=== PATIENT | female | born 1990 | race Caucasian/White ===

== ENCOUNTER 2022-09-22 16:08 | Emergency (ER) | payer OTHER ==
[2022-09-22 17:21] LABS: BASOPHILS PERCENT AUTO 0.2 % (0.0-1.5); EOSINOPHILS PERCENT AUTO 0.8 % (0.0-7.0); HEMATOCRIT 39.3 % (36.0-46.0); HEMOGLOBIN 13.6 g/dL (12.0-16.0); LYMPHOCYTES ABSOLUTE AUTO 1.6 K/uL (0.6-2.4); LYMPHOCYTES PERCENT AUTO 29.9 % (16.0-40.0); MEAN CORPUSCULAR HEMOGLOBIN 32.2 pg (27.0-32.0); MEAN CORPUSCULAR HGB CONC 34.6 g/dL (31.0-37.0); MEAN CORPUSCULAR VOLUME 93.1 fL (80.0-98.0); MONOCYTES ABSOLUTE AUTO 0.5 K/uL (0.0-0.8); MONOCYTES PERCENT AUTO 9.6 % (0.0-15.0); NEUTROPHILS ABSOLUTE AUTO 3.1 K/uL (1.4-5.7); NEUTROPHILS PERCENT AUTO 59.5 % (48.0-80.0); NRBC ABSOLUTE 0 K/uL; PLATELET COUNT,PLT 279 K/uL (150-400); RED BLOOD CELL COUNT 4.22 M/uL (4.30-5.90); WHITE BLOOD CELL COUNT,WBC 5.22 K/uL (4.0-11.0)
[2022-09-22 17:34] LABS: INR 0.94 (0.86-1.11)
[2022-09-22 17:56] LABS: A/G RATIO 1.1 (0.9-1.6); ALBUMIN 4.1 g/dL (3.4-5.0); BILIRUBIN TOTAL 0.3 mg/dL (0.2-1.0); CALCIUM 8.8 mg/dL (8.5-10.1); CREATININE 0.8 mg/dL (0.6-1.0); EST CRCL DRUG DOSING (CG) 76.57 mL/min; PROTEIN TOTAL,TP 7.9 g/dL (6.4-8.2)
== END 2022-09-22 17:32 | disposition left against medical advice (07) ==
LOC: MW.ED 16:08
DX: F10.10 Alcohol abuse, uncomplicated (principal)
CPT/HCPCS: 36415; 80053; 83690; 84703; 85025; 85610; 93010; 99283

== ENCOUNTER 2022-09-26 10:40 | Emergency (ER) | payer OTHER ==
[2022-09-26] MEDS ORDERED: LORazepam 2 MG/ML SDV IVPUSH ONE ×2 (11:07→12:45)
[2022-09-26] MEDS ORDERED: LORazepam 0.5 MG Tab PO ONE (11:09)
[2022-09-26 11:24] LABS: BASOPHILS PERCENT AUTO 0.1 % (0.0-1.5); HEMOGLOBIN 13.3 g/dL (12.0-16.0); LYMPHOCYTES PERCENT AUTO 14.7 % (16.0-40.0); MEAN CORPUSCULAR HEMOGLOBIN 32.4 pg (27.0-32.0); MEAN CORPUSCULAR VOLUME 92.5 fL (80.0-98.0); MONOCYTES ABSOLUTE AUTO 0.4 K/uL (0.0-0.8); MONOCYTES PERCENT AUTO 5.9 % (0.0-15.0); NEUTROPHILS ABSOLUTE AUTO 5.6 K/uL (1.4-5.7); NEUTROPHILS PERCENT AUTO 79.3 % (48.0-80.0); NRBC ABSOLUTE 0 K/uL; PLATELET COUNT,PLT 225 K/uL (150-400); RED BLOOD CELL COUNT 4.11 M/uL (4.30-5.90); WHITE BLOOD CELL COUNT,WBC 7.09 K/uL (4.0-11.0)
[2022-09-26 11:35] LABS: INR 1.03 (0.86-1.11)
[2022-09-26 12:02] LABS: A/G RATIO 1.2 (0.9-1.6); ALBUMIN 4.3 g/dL (3.4-5.0); BILIRUBIN TOTAL 0.5 mg/dL (0.2-1.0); CALCIUM 9.7 mg/dL (8.5-10.1); CARBON DIOXIDE,CO2 20.2 mmol/L (21.0-32.0); CREATININE 0.8 mg/dL (0.6-1.0); EST CRCL DRUG DOSING (CG) 73.05 mL/min; MAGNESIUM 1.6 mg/dL (1.8-2.4); POTASSIUM,K 2.9 mmol/L (3.5-5.1); PROTEIN TOTAL,TP 7.9 g/dL (6.4-8.2)
[2022-09-26 12:08] LABS: LACTIC ACID 6.3 mmol/L (0.4-2.0)
[2022-09-26] MEDS ORDERED: Potassium Chloride 10 MEQ in Premix Bag 1 BAG IV ONE (12:43)
[2022-09-26] MEDS ORDERED: Magnesium Sulfate/Water 2 GM in Premix Bag 1 BAG IV ONE (12:43)
[2022-09-26] MEDS ORDERED: Lactated Ringers 1,000 ML IV ONE (12:43)
[2022-09-26] MEDS ORDERED: Potassium Chloride 20 MEQ Tab.ER PO ONE (12:44)
[2022-09-26 17:02] LABS: A/G RATIO 1.1 (0.9-1.6); ALBUMIN 3.9 g/dL (3.4-5.0); BILIRUBIN TOTAL 0.8 mg/dL (0.2-1.0); CARBON DIOXIDE,CO2 25.5 mmol/L (21.0-32.0); CREATININE 0.7 mg/dL (0.6-1.0); EST CRCL DRUG DOSING (CG) 83.48 mL/min; PROTEIN TOTAL,TP 7.3 g/dL (6.4-8.2)
== END 2022-09-26 17:01 | disposition home or self-care (01) ==
LOC: MW.ED 10:40
DX: F10.139 Alcohol abuse with withdrawal, unspecified (principal); Y90.6 Blood alcohol level of 120-199 mg/100 ml
CPT/HCPCS: 36415; 80053; 80307; 83605; 83690; 83735; 84703; 85025; 85610; 93005; 96361; 96365; 96366; 96368; 96375; 99283; A9270; J2060; J3475; J3480; J7050; J7120

== ENCOUNTER 2022-11-19 11:12 | Emergency (ER) | payer OTHER ==
[2022-11-19] MEDS ORDERED: Acetaminophen 325 MG Tab PO ONE (12:22)
== END 2022-11-19 14:20 | disposition left against medical advice (07) ==
LOC: MW.ED 11:12
DX: S60.512A Abrasion of left hand, initial encounter (principal); S80.02XA Contusion of left knee, initial encounter; S09.90XA Unspecified injury of head, initial encounter; M25.522 Pain in left elbow; Y09 Assault by unspecified means
CPT/HCPCS: 70450; 72125; 73562; 81025; 99284; A9270; 99283

== ENCOUNTER 2023-05-10 12:04 | Emergency (ER) | payer SELFPAY ==
[2023-05-10] MEDS ORDERED: Sodium Chloride 0.9% 1,000 ML IV ONE (12:06)
[2023-05-10] MEDS ORDERED: Sodium Chloride 0.9% 2.5 ML Syringe FLUSH PRN (12:06)
[2023-05-10] MEDS ORDERED: Sodium Chloride 0.9% 10 ML Syringe FLUSH PRN (12:06)
[2023-05-10 12:15] LABS: BASOPHILS ABSOLUTE AUTO 0.02 K/uL (0.00-0.20); BASOPHILS PERCENT AUTO 0.4 % (0.0-1.0); EOSINOPHILS ABSOLUTE AUTO 0.01 K/uL (0.00-0.45); EOSINOPHILS PERCENT AUTO 0.2 % (0.0-6.0); HEMATOCRIT 39.2 % (37.0-47.0); HEMOGLOBIN 13.5 g/dL (12.0-16.0); IMMATURE GRAN ABSOLUTE AUTO 0.01 K/uL (0.00-0.05); IMMATURE GRAN PERCENT AUTO 0.2 % (0.0-0.4); LYMPHOCYTES ABSOLUTE AUTO 2.59 K/uL (1.00-4.80); LYMPHOCYTES PERCENT AUTO 48.6 % (24.0-44.0); MEAN CORPUSCULAR HEMOGLOBIN 32.1 pg (28.0-32.0); MEAN CORPUSCULAR HGB CONC 34.4 g/dL (32.0-36.0); MEAN CORPUSCULAR VOLUME 93.3 fL (83.0-99.0); MEAN PLATELET VOLUME 8.9 fL (9.4-12.3); MONOCYTES ABSOLUTE AUTO 0.41 K/uL (0.00-0.80); MONOCYTES PERCENT AUTO 7.7 % (0.0-8.0); NEUTROPHILS ABSOLUTE AUTO 2.29 K/uL (1.80-7.70); NEUTROPHILS PERCENT AUTO 42.9 % (41.0-71.0); PLATELET COUNT,PLT 331 K/uL (150-400); WHITE BLOOD CELL COUNT,WBC 5.33 K/uL (3.9-11.3)
[2023-05-10 12:55] LABS: A/G RATIO 1.3 (0.9-1.6); ALBUMIN 4.2 g/dL (3.4-5.0); BILIRUBIN TOTAL 0.4 mg/dL (0.2-1.0); CALCIUM 8.5 mg/dL (8.5-10.1); CARBON DIOXIDE,CO2 24.2 mmol/L (21.0-32.0); CREATININE 0.9 mg/dL (0.6-1.0); EST CRCL DRUG DOSING (CG) 68.2 mL/min; POTASSIUM,K 3.6 mmol/L (3.5-5.1); PROTEIN TOTAL,TP 7.5 g/dL (6.4-8.2); TSH ULTRASENSITIVE 1.27 uIU/mL (0.36-3.74)
[2023-05-10 13:12] LABS: APPEARANCE,URINE CLEAR; BILIRUBIN,URINE NEGATIVE (NEGATIVE); COLOR,URINE YELLOW; GLUCOSE,URINE NEGATIVE (NEGATIVE); KETONES,URINE TRACE mg/dL (NEGATIVE); LEUKOCYTE ESTERASE,URINE NEGATIVE (NEGATIVE); NITRITE,URINE NEGATIVE (NEGATIVE); OCCULT BLOOD,URINE NEGATIVE (NEGATIVE); PROTEIN,URINE NEGATIVE (NEGATIVE); UROBILINOGEN,URINE 0.2 EU/dL (<2.0)
[2023-05-10 13:22] LABS: AMPHETAMINES SCREEN, URINE NEGATIVE (CUTOFF=500); BARBITURATE SCREEN,URINE NEGATIVE (CUTOFF=200); BENZODIAZEPINES SCREEN,URINE NEGATIVE (CUTOFF=150); BUPRENORPHINE SCREEN,URINE NEGATIVE (CUTOFF=10); METHADONE SCREEN, URINE NEGATIVE (CUTOFF=200); METHAMPHETAMINES SCREEN, URINE NEGATIVE (CUTOFF=500); OXYCODONE SCREEN,URINE NEGATIVE (CUT0FF=100); PCP SCREEN,URINE NEGATIVE (CUTOFF=25); THC SCREEN,URINE 20 NG/ML NEGATIVE (CUTOFF=50)
== END 2023-05-10 13:24 | disposition left against medical advice (07) ==
LOC: MW.ED 12:04
DX: F10.10 Alcohol abuse, uncomplicated (principal); Z72.89 Other problems related to lifestyle
CPT/HCPCS: 36415; 71045; 80053; 80305; 80307; 81003; 81025; 84443; 84484; 85025; 93005; 96360; 99285; J3490; J7030

== ENCOUNTER 2023-05-17 10:07 | Emergency (ER) | payer SELFPAY | END 2023-05-17 11:33 | LOC: MW.ED 10:07 | DX: Z02.89 Encounter for other administrative examinations (principal); F10.920 Alcohol use, unspecified with intoxication, uncomplicated | CPT/HCPCS: 99284 ==

== ENCOUNTER 2024-10-30 05:11 | Inpatient (IN) | payer BC ==
[2024-10-30] MEDS ORDERED: Sodium Chloride 0.9% 10 ML Syringe FLUSH PRN ×2 (05:20→10:56)
[2024-10-30] MEDS ORDERED: Sodium Chloride 0.9% 20 ML SDV IV PRN (05:20)
[2024-10-30] MEDS ORDERED: Sodium Chloride 0.9% 2.5 ML Syringe FLUSH PRN ×2 (05:20→10:56)
[2024-10-30] MEDS: Lactated Ringers 1,000 ML IV SCH (05:30)
[2024-10-30 06:24] LABS: HEMATOCRIT 38.4 % (37.0-47.0); HEMOGLOBIN 13.3 g/dL (12.0-16.0); MEAN CORPUSCULAR HEMOGLOBIN 31.8 pg (28.0-32.0); MEAN CORPUSCULAR HGB CONC 34.6 g/dL (32.0-36.0); MEAN CORPUSCULAR VOLUME 91.9 fL (83.0-99.0); MEAN PLATELET VOLUME 10.6 fL (9.4-12.3); PLATELET COUNT,PLT 202 K/uL (150-400); RED BLOOD CELL COUNT 4.18 M/uL (4.10-5.30); WHITE BLOOD CELL COUNT,WBC 11.82 K/uL (3.9-11.3)
[2024-10-30] MEDS ORDERED: EPINEPHrine 1 MG/1 ML Amp ONE (07:24)
[2024-10-30] MEDS ORDERED: ceFAZolin 1 GM Vial ONE (07:24)
[2024-10-30] MEDS ORDERED: Bupivacaine 0.25% 30 ML SDV ONE (07:24)
[2024-10-30] MEDS ORDERED: Oxytocin 10 Units/1 ML SDV ONE (07:24)
[2024-10-30] MEDS ORDERED: Ketorolac 30 MG/ML SDV ONE (07:24)
[2024-10-30] MEDS ORDERED: Ropivacaine 0.5% 5 MG/ML 30 ML SDV ONE (07:24)
[2024-10-30] MEDS ORDERED: Ondansetron 4 MG/2 ML SDV ONE (07:24)
[2024-10-30] MEDS ORDERED: Morphine PF 10 MG/10 ML SDV ONE (07:25)
[2024-10-30] MEDS ORDERED: fentaNYL 100 MCG/2 ML SDV ONE (07:25)
[2024-10-30] MEDS ORDERED: Phenylephrine HCl In 0.9% NaCl 1 MG/10 ML Syringe ONE (07:34)
[2024-10-30] MEDS ORDERED: Phenylephrine HCl In 0.9% NaCl 1 MG/10 ML Syringe IVPUSH PRN (07:48)
[2024-10-30] MEDS ORDERED: Metoclopramide 10 MG/2 ML SDV IVPUSH PRN (07:48)
[2024-10-30] MEDS ORDERED: Nalbuphine 10 MG/1 ML Vial IVPUSH PRN (07:48)
[2024-10-30] MEDS ORDERED: Naloxone 0.4 MG/ML SDV IVPUSH PRN (07:48)
[2024-10-30] MEDS ORDERED: Morphine 2 MG/ML SYRINGE IVPUSH PRN (07:48)
[2024-10-30] MEDS ORDERED: diphenhydrAMINE 50 MG/ML SDV IVPUSH PRN (07:48)
[2024-10-30] MEDS ORDERED: Ondansetron 4 MG/2 ML SDV IVPUSH PRN ×2 (07:48→10:56)
[2024-10-30] MEDS ORDERED: HYDROmorphone 1 MG/ML Syringe IVPUSH PRN (07:48)
[2024-10-30] MEDS ORDERED: fentaNYL 50 MCG/ML SDV IVPUSH PRN (07:48)
[2024-10-30] MEDS ORDERED: Albuterol 0.083% 2.5 MG/3 ML Neb Soln NEB PRN (07:48)
[2024-10-30] MEDS ORDERED: fentaNYL 100 MCG/2 ML SDV IVPUSH PRN (07:48)
[2024-10-30] MEDS: Tranexamic Acid in NACL,ISO-OS 1,000 MG in Premix Bag 1 BAG IV ONE (10:50)
[2024-10-30] MEDS: Methylergonovine 0.2 MG/1 ML Amp IM ONE (10:55)
[2024-10-30] MEDS ORDERED: Lanolin 100% Cream 7 GM Tube TOP PRN (10:56)
[2024-10-30] MEDS ORDERED: Carboprost Tromethamine 250 MCG/1 mL Vial IM PRN (10:56)
[2024-10-30] MEDS ORDERED: Diphtheria,Pertussis(Acell),Tetanus Vaccine 0.5 ML Syringe IM ONE (10:56)
[2024-10-30] MEDS ORDERED: oxyCODONE 5 MG Tab PO PRN (10:56)
[2024-10-30] MEDS ORDERED: Oxytocin/0.9 % Sodium Chloride 30 UNIT/500 ML BAG IV SCH (11:00)
[2024-10-30] MEDS: Oxytocin/0.9 % Sodium Chloride 30 UNIT/500 ML BAG IV SCH (11:04)
[2024-10-30] MEDS: Misoprostol 200 MCG Tab RECTAL PRN (11:10)
[2024-10-30 11:44] LABS: HEMATOCRIT 34.8 % (37.0-47.0); MEAN CORPUSCULAR HEMOGLOBIN 32.4 pg (28.0-32.0); MEAN CORPUSCULAR HGB CONC 34.5 g/dL (32.0-36.0); MEAN CORPUSCULAR VOLUME 94.1 fL (83.0-99.0); MEAN PLATELET VOLUME 10.2 fL (9.4-12.3); PLATELET COUNT,PLT 184 K/uL (150-400); WHITE BLOOD CELL COUNT,WBC 26.04 K/uL (3.9-11.3)
[2024-10-30] MEDS: Ondansetron 4 MG/2 ML SDV IVPUSH PRN (11:51)
[2024-10-30] MEDS: Calcium Gluconate 10% 1 GM/10 ML SDV IVPUSH ONE (11:51)
[2024-10-30 12:06] LABS: INR 0.97 (0.86-1.11); PTT,PARTIAL THROMBOPLSTIN TIME 25.6 SEC (23.9-30.7)
[2024-10-30 12:07] LABS: A/G RATIO 0.8 (0.9-1.6); ALBUMIN 2.3 g/dL (3.4-5.0); BILIRUBIN TOTAL 0.4 mg/dL (0.2-1.0); CALCIUM 8.5 mg/dL (8.5-10.1); CREATININE 0.8 mg/dL (0.6-1.0); EST CRCL DRUG DOSING (CG) 86.46 mL/min; POTASSIUM,K 3.3 mmol/L (3.5-5.1); PROTEIN TOTAL,TP 5.2 g/dL (6.4-8.2)
[2024-10-30] MEDS: Ketorolac 30 MG/ML SDV IVPUSH SCH (15:24)
[2024-10-30] MEDS: Citric Acid/Sodium Citrate Solution 30 ML Cup PO ONE (15:46)
[2024-10-30] MEDS: ceFAZolin 2 GM in Water For Injection, Sterile 20 ML IVPUSH ONE (15:46)
[2024-10-30] MEDS: Measles, Mumps & Rubella Vaccine 0.5 ML SDV SUBCUT ONE (16:19)
[2024-10-30] MEDS: Docusate Sodium 100 MG Cap PO SCH (21:32)
[2024-10-31 06:29] LABS: BASOPHILS ABSOLUTE AUTO 0.02 K/uL (0.00-0.20); BASOPHILS PERCENT AUTO 0.1 % (0.0-1.0); EOSINOPHILS ABSOLUTE AUTO 0.02 K/uL (0.00-0.45); EOSINOPHILS PERCENT AUTO 0.1 % (0.0-6.0); HEMATOCRIT 22.4 % (37.0-47.0); HEMOGLOBIN 7.6 g/dL (12.0-16.0); IMMATURE GRAN ABSOLUTE AUTO 0.25 K/uL (0.00-0.05); IMMATURE GRAN PERCENT AUTO 1.4 % (0.0-0.4); LYMPHOCYTES ABSOLUTE AUTO 2.51 K/uL (1.00-4.80); LYMPHOCYTES PERCENT AUTO 13.7 % (24.0-44.0); MEAN CORPUSCULAR HEMOGLOBIN 31.7 pg (28.0-32.0); MEAN CORPUSCULAR HGB CONC 33.9 g/dL (32.0-36.0); MEAN CORPUSCULAR VOLUME 93.3 fL (83.0-99.0); MEAN PLATELET VOLUME 9.9 fL (9.4-12.3); MONOCYTES ABSOLUTE AUTO 1.23 K/uL (0.00-0.80); MONOCYTES PERCENT AUTO 6.7 % (0.0-8.0); PLATELET COUNT,PLT 152 K/uL (150-400); WHITE BLOOD CELL COUNT,WBC 18.33 K/uL (3.9-11.3)
[2024-10-31] MEDS: Acetaminophen/oxyCODONE 325-5 MG Tab PO PRN (08:38)
[2024-10-31] MEDS ORDERED: Acetaminophen 500 MG Tab PO PRN (10:57)
[2024-10-31] MEDS: Sodium Chloride 0.9% 1,000 ML IV SCH (11:27)
[2024-10-31] MEDS: Sodium Ferric Gluconate Cmplex 125 MG in Sodium Chloride 0.9% 100 ML IV ONE (12:26)
[2024-10-31] MEDS: Simethicone 80 MG Tab.Chew PO PRN (16:47)
[2024-10-31] MEDS: Ibuprofen 800 MG Tab PO PRN (20:25)
[2024-11-01 00:29] LABS: HEMATOCRIT 24.8 % (37.0-47.0); HEMOGLOBIN 8.3 g/dL (12.0-16.0)
== END 2024-11-01 10:56 | disposition home or self-care (01) | DRG 540 ==
LOC: MW.OB 05:11
PROVIDERS: ADMIT Obstetrics & Gynecology Obstetrics; ATTEND Obstetrics & Gynecology Obstetrics
PROC: 4A1HXCZ Monitoring of Products of Conception, Cardiac Rate, External Approach (ICD-10-PCS; 2024-10-30)
PROC: 10D00Z1 Extraction of Products of Conception, Low, Open Approach (ICD-10-PCS; principal; 2024-10-30 08:00)
DX: O32.1XX0 Maternal care for breech presentation, not applicable or unspecified (principal); Z3A.39 39 weeks gestation of pregnancy; Z37.0 Single live birth; O99.344 Other mental disorders complicating childbirth; O99.824 Streptococcus B carrier state complicating childbirth; O99.02 Anemia complicating childbirth; D62 Acute posthemorrhagic anemia
CPT/HCPCS: 01961; 36415; 59025; 64488; 80053; 85014; 85018; 85025; 85027; 85384; 85610; 85730; 86592; 86850; 86900; 86901; 86920; A9270-GY; J0173; J0612; J0665; J0690; J1100; J1885; J2210; J2274; J2371; J2405; J2590; J2795; J2916; J3010; J7030; J7120

== ENCOUNTER 2024-11-27 12:54 | Emergency (ER) | payer BC ==
[2024-11-27 14:37] LABS: BASOPHILS ABSOLUTE AUTO 0.02 K/uL (0.00-0.20); BASOPHILS PERCENT AUTO 0.1 % (0.0-1.0); EOSINOPHILS ABSOLUTE AUTO 0.02 K/uL (0.00-0.45); EOSINOPHILS PERCENT AUTO 0.1 % (0.0-6.0); IMMATURE GRAN ABSOLUTE AUTO 0.04 K/uL (0.00-0.05); IMMATURE GRAN PERCENT AUTO 0.3 % (0.0-0.4); LYMPHOCYTES ABSOLUTE AUTO 1.27 K/uL (1.00-4.80); LYMPHOCYTES PERCENT AUTO 9.5 % (24.0-44.0); MEAN PLATELET VOLUME 9.2 fL (9.4-12.3); MONOCYTES ABSOLUTE AUTO 0.66 K/uL (0.00-0.80); MONOCYTES PERCENT AUTO 4.9 % (0.0-8.0); NEUTROPHILS ABSOLUTE AUTO 11.39 K/uL (1.80-7.70); NEUTROPHILS PERCENT AUTO 85.1 % (41.0-71.0); NRBC ABSOLUTE 0.00 K/uL (0.00-0.02); NRBC PERCENT 0.0 /100WBC (0.0-0.2); PLATELET COUNT,PLT 311 K/uL (150-400); RED BLOOD CELL COUNT 4.14 M/uL (4.10-5.30); WHITE BLOOD CELL COUNT,WBC 13.40 K/uL (3.9-11.3)
[2024-11-27 14:52] LABS: INR 1.06 (0.86-1.11); PTT,PARTIAL THROMBOPLSTIN TIME 26.8 SEC (23.9-30.7)
[2024-11-27 15:09] LABS: APPEARANCE,URINE CLEAR; GLUCOSE,URINE NEGATIVE (NEGATIVE); OCCULT BLOOD,URINE LARGE (NEGATIVE)
[2024-11-27 15:10] LABS: A/G RATIO 1.1 (0.9-1.6); ALANINE AMINOTRANSFERASE,ALT 26.0 IU/L (14-63); ASPARTATE AMNIOTRANSFERASE,AST 17.0 IU/L (15-37); BILIRUBIN TOTAL 0.7 mg/dL (0.2-1.0); BLOOD UREA NITROGEN,BUN 14.0 mg/dL (7.0-18.0); CARBON DIOXIDE,CO2 27.2 mmol/L (21.0-32.0); CHLORIDE,CL 102.0 mmol/L (98-107); CREATININE 0.9 mg/dL (0.6-1.0); EST CRCL DRUG DOSING (CG) 77.49 mL/min; ESTIMATED GFR 87.0 mL/min (>60); GLUCOSE RANDOM 83.0 mg/dL (74-106); HCG QUANTITATIVE 1.0 mIU/mL; POTASSIUM,K 3.8 mmol/L (3.5-5.1); PROTEIN TOTAL,TP 7.7 g/dL (6.4-8.2); SODIUM,NA 139.0 mmol/L (136-145)
[2024-11-27 15:47] LABS: EPITHELIAL CELLS,URINE RARE (NONE-FEW)
== END 2024-11-27 20:15 | disposition home or self-care (01) ==
LOC: MW.ED 12:54
DX: N93.9 Abnormal uterine and vaginal bleeding, unspecified (principal); Z79.899 Other long term (current) drug therapy
CPT/HCPCS: 36415; 74176; 76830; 80053; 81001; 83735; 84702; 85025; 85610; 85730; 86850; 86900; 86901; 87086; 99284; A9270; 99283